=== PATIENT | female | born 1965 | race Caucasian/White ===

== ENCOUNTER 2017-11-03 04:28 | Emergency (ER) | payer OTHER ==
[2017-11-03] MEDS ORDERED: Sodium Chloride 0.9% 10 ML Syringe FLUSH PRN (05:22)
[2017-11-03] MEDS ORDERED: diphenhydrAMINE 50 MG/ML SDV IVPUSH ONE (05:24)
--- NOTE | 2017-11-03 05:41 | EDM.PDOC ---
<Wang Degroot - Last Filed: 11/03/17 06:44> ED HPI GENERAL MEDICAL PROBLEM - General Chief Complaint: General Stated Complaint: MEDICAL/STROKE? Time Seen by Provider: 11/03/17 05:11 Source of Information: Reports: Patient, RN Notes Reviewed History Limitations: Reports: No Limitations - History of Present Illness INITIAL COMMENTS - FREE TEXT/NARRATIVE: Here with her , visiting from [place] Spinning sensation History of present illn 42-year-old female woke up with the room spinning around about 4:15 AM. She got off and was very much off balance. She also had tingling sensation on the right side of the body and both legs. She was able to get up with help from her being very careful got to the bathroom. Because the off balance sensation continued she was worried that she was having a stroke and had her drive her here. Needed some assistance coming into the hospital. No headache no visual symptoms. When she arrived here she started gettin Some "wooziness" and some chest pressure. No vomiting. No visual disturbance. History of TIA diagnosed 5 years ago when she presented with total blackness of vision in her left eye, recovered completely. She's been on aspirin ever since. Also history of hypertension. No history of heart disease. She does not smoke History of episodes of vertigo previously, definitely positional, brought on by turning of her head. This however is brought on by standing up and she feels that "the bottom will dropout from below me. Definite feels very lightheaded. Also history of heart failure for which she is on KAVYA inhibitor. Consequently she usually has a low blood pressure so her elevated pressure tonight is unusual for her. - Related Data Allergies Allergy/AdvReac Type Severity Reaction Status Date / Time cyclobenzaprine Allergy Rash Verified 11/03/17 04:40 [From Flexeril] erythromycin base Allergy Swollen Verified 11/03/17 04:40 Tongue contrast dye Allergy Tachycardia Uncoded 11/03/17 04:40 Home Meds: Home Meds Aspirin [Halfprin] 81 mg PO DAILY 11/03/17 [History] Carvedilol [Coreg] 3.125 mg PO DAILY 11/03/17 [History] Carvedilol [Coreg] 6.25 mg PO BEDTIME 11/03/17 [History] Enalapril [Vasotec] 5 mg PO DAILY 11/03/17 [History] Levothyroxine Sodium [Levoxyl] 88 mcg PO DAILY 11/03/17 [History] metFORMIN HCl [Glucophage] 1,000 mg PO DAILY 11/03/17 [History] Past Medical History Cardiovascular History: Reports: Heart Failure Genitourinary History: Reports: Chronic Renal Insuffiency, Renal Calculus [employer]OY[employer] BENEFITS History: Reports: Musculoskeletal History: Reports: Arthritis Neurological History: Reports: TIA Endocrine/Metabolic History: Reports: Diabetes, Type II, Hypothyroidism - Past Surgical History GI Surgical History: Reports: Cholecystectomy Female Surgical History: Reports: Hysterectomy, Tubal Ligation Social & Family History - Tobacco Use Smoking Status *Q: Never Smoker - Caffeine Use Caffeine Use: Reports: Soda - Recreational Drug Use Recreational Drug Use: No ED ROS GENERAL - Review of Systems Review Of Systems: See Below Constitutional: Reports: Other (Sleep disturbance) HEENT: Reports: No Symptoms Respiratory: Reports: No Symptoms Cardiovascular: Reports: Chest Pain, Edema. Denies: Palpitations, Syncope Endocrine: Reports: No Symptoms GI/Abdominal: Reports: Nausea. Denies: Abdominal Pain, Diarrhea, Vomiting : Reports: No Symptoms Musculoskeletal: Reports: No Symptoms Skin: Reports: No Symptoms Neurological: Reports: Dizziness (Spinning sensation of the room), Tingling ( Right side improving), Difficulty Walking (Assistance with walking from the car year). Denies: Headache, Numbness, Tremors, Trouble Speaking, Change in Speech Hematologic/Lymphatic: Reports: No Symptoms Immunologic: Reports: No Symptoms ED EXAM, GENERAL - Physical Exam Exam: See Below Exam Limited By: No Limitations General Appearance: Anxious, Mild Distress, Other (Appears tired, elevated blood pressure otherwise vital signs normal, no difficulty speaking or breathing ) Eye Exam: Bilateral Eye: EOMI, Normal Inspection Ears: Normal External Exam, Normal TMs Nose: Normal Inspection, Normal Mucosa Throat/Mouth: Normal Inspection, Normal Oropharynx Head: Atraumatic, Normocephalic Neck: Normal Inspection, Supple, Non-Tender Respiratory/Chest: No Respiratory Distress, Lungs Clear (I) Cardiovascular: Normal Peripheral Pulses, Regular Rate, Rhythm (On nights) GI/Abdominal: Soft, Non-Tender (She worked) Back Exam: Normal Inspection Extremities: Normal Inspection Neurological: Alert, Oriented, Normal Cognition, No Motor/Sensory Deficits. No : Slow to Respond, Unresponsive, Sensory/Motor Deficit Psychiatric: Flat Affect Skin Exam: Warm, Dry, Intact, Normal Color, No Rash Course - Vital Signs Last Recorded V/S: Last Vital Signs Temp 97.5 F 11/03/17 09:30 Pulse 77 11/03/17 09:30 Resp 16 11/03/17 09:30 BP 146/90 H 11/03/17 09:30 Pulse Ox 98 11/03/17 09:30 - Orders/Labs/Meds Orders: Active Orders 24 hr Category Date Time Status EKG Documentation Completion [RC] ASDIRECTED Care 11/03/17 05:23 Active Peripheral IV Care [RC] . DIRECTED Care 11/03/17 05:23 Active Peripheral IV Insertion Adult [OM.PC] Routine Oth 11/03/17 05:22 Ordered EKG 12 Lead [EK] Routine Ther 11/03/17 05:22 Ordered Labs: Laboratory Tests 11/03/17 11/03/17 Range/Units 05:22 05:22 WBC 8.3 (4.5-11.0) K/uL RBC 4.87 (3.30-5.50) M/uL Hgb 14.7 (12.0-15.0) g/dL Hct 42.3 (36.0-48.0) % MCV 87 (80-98) fL MCH 30 (27-31) pg MCHC 35 (32-36) % Plt Count 256 (150-400) K/uL Sodium 139 L (140-148) mmol/L Potassium 3.9 (3.6-5.2) mmol/L Chloride 105 (100-108) mmol/L Carbon Dioxide 25 (21-32) mmol/L Anion Gap 12.9 (5.0-14.0) mmol/L BUN 12 (7-18) mg/dL Creatinine 1.0 (0.6-1.0) mg/dL Est Cr Clr Drug Dosing 67.21 mL/min Estimated GFR (MDRD) 58 L (>60) Glucose 142 H (74-106) mg/dL Calcium 9.2 (8.5-10.1) mg/dL Troponin I < 0.017 (0.000-0.056) ng/mL Meds: Medications Discontinued Medications Generic Name Dose Route Start Last Admin Trade Name Freq PRN Reason Stop Dose Admin Diphenhydramine HCl 25 mg 11/03/17 05:24 11/03/17 05:31 Benadryl IVPUSH 11/03/17 05:25 Not Given ONETIME ONE Meclizine HCl 25 mg 11/03/17 06:01 11/03/17 06:12 Antivert PO 11/03/17 06:02 25 mg ONETIME ONE Administration Sodium Chloride 10 ml 11/03/17 05:22 11/03/17 05:31 Saline Flush FLUSH 10 ml ASDIRECTED PRN Administration Keep Vein Open - Re-Assessments/Exams Free Text/Narrative Re-Assessment/Exam: 11/03/17 05:48 52-year-old female who gives a history of previous TIA presenting with vertiginous symptoms along with some chest pressure and nausea Differential diagnoses includes heart disease at other causes of vertical 11/03/17 06:16 EKG shows left bundle branch block, she has had this previously. 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 [employer] and from reading and taking care of people in her family Normal blood count urea and creatinine although with the calculator her GFR comes out slightly low at 58, this is an improvement from previous Normal potassium normal troponin Meclizine 25 mg by mouth 11/03/17 06:47 No improvement in her symptoms Persisting disequilibrium Will order MRI of the brain to exclude stroke Transferred to care of pending results of MRI Departure - Departure Disposition: Home, Self-Care 01 Condition: Undetermined Clinical Impression: Disequilibrium Vertigo, central Qualifiers: Laterality: unspecified laterality Qualified Code(s): H81.49 - Vertigo of central origin, unspecified ear - Discharge Information Instructions: Vertigo, [id number] Referrals: PCP,None [Primary Care Provider] - Forms: ED Department Discharge Care Plan Goals: Increase activity as tolerated, use meclizine as needed and prescribed and recheck when home if not improving satisfactorily. <Arturo Carvalho - Last Filed: 11/03/17 10:04> Course - Re-Assessments/Exams Free Text/Narrative Re-Assessment/Exam: 11/03/17 09:38 Patient care turned over from Dr. Degroot pending an MRI. The MRI was negative, and the patient was improving. She was comfortable being discharged with additional meclizine. A copy of the MRI was given to the patient so she can recheck when she gets home. Departure - Departure Time of Disposition: 09:42 Condition: Good
[2017-11-03] MEDS ORDERED: Meclizine 25 MG Tab PO ONE (06:01)
--- NOTE | 2017-11-03 08:40 | CR ---
CHEST: Portable CLINICAL HISTORY:Chest pressure COMPARISON:None FINDINGS: Heart size and pulmonary vascularity are normal. No infiltrate effusion or pneumothorax is seen. Impression: No acute cardiopulmonary process.
--- NOTE | 2017-11-03 09:05 | MR ---
Brain wo Cont CLINICAL HISTORY: Disequilibrium, vertigo, TIA COMPARISON: None TECHNIQUE: Multiple axial, sagittal, and coronal images were obtained on a 1.5 T magnet with multiwei ghted sequences, FLAIR, and diffusion imaging without contrast. FINDINGS: There is no focal mass lesion. There is no hemmorhage or extraaxial collection. No restrict ed diffusion is identified. The basal cisterns and sulci over the convexities are prominent. The vent ricles are mildly prominent. Internal auditory canals are symmetric bilaterally IMPRESSION: Age-related atrophy. No focal lesion, mass effect or hemorrhage Patient refused IV contrast with concern for allergy. If clinical symptomatology persists or worsens repeat the MR pre and postcontrast following premedication should be considered
== END 2017-11-03 09:54 | disposition home or self-care (01) ==
LOC: JP.ED 04:28
DX: H81.49 Vertigo of central origin, unspecified ear (principal); E87.8 Other disorders of electrolyte and fluid balance, not elsewhere classified; N18.9 Chronic kidney disease, unspecified; E11.22 Type 2 diabetes mellitus with diabetic chronic kidney disease; E03.9 Hypothyroidism, unspecified; I50.9 Heart failure, unspecified; Z86.73 Personal history of transient ischemic attack (TIA), and cerebral infarction without residual deficits; Z87.442 Personal history of urinary calculi
CPT/HCPCS: 36415; 70551; 71045; 80048; 84484; 85027; 93005; 99285; A9270; J7050